=== PATIENT | male | born 1955 | race Caucasian/White ===

== ENCOUNTER → 2018-05-03 | Outpatient (CLI) | payer OTHER ==
[~2018-05-03] MED LIST: ALTACE10 MG PO; ALTACE5 M1 PO; GLUCOPHAGE500 MG PO; HUMALOG100 UNIT/1 SUBQ; LANTUS SUBQ; SIMVASTATIN40 MG PO; TRAMADOL 50 MG50 MG PO; [UNRECOGNIZED DRUG - CODE] PO
== END ==
LOC: M.RAD 09:15
DX: M47.817 Spondylosis without myelopathy or radiculopathy, lumbosacral region (principal); M16.0 Bilateral primary osteoarthritis of hip; M47.898 Other spondylosis, sacral and sacrococcygeal region; I10 Essential (primary) hypertension; M43.17 Spondylolisthesis, lumbosacral region; M48.07 Spinal stenosis, lumbosacral region; G89.29 Other chronic pain

== ENCOUNTER → 2021-05-14 | Outpatient (CLI) | payer BC | LOC: M.RAD 14:51 | PROVIDERS: ATTEND Registered Nurse Diabetes Educator | DX: R05.9 Cough, unspecified (principal) ==